=== PATIENT | female | born 1970 | race Caucasian/White ===

== ENCOUNTER 2021-03-22 09:20 | Outpatient (CLI) | payer OTHER | END 2021-03-22 09:21 | disposition home or self-care (01) | LOC: CSHMAMMO 09:20 | PROVIDERS: ATTEND Physician Assistant | DX: Z12.31 Encounter for screening mammogram for malignant neoplasm of breast (principal) | CPT/HCPCS: 77063; 77067 ==

== ENCOUNTER 2022-11-19 07:05 | Day surgery (SDC) | payer OTHER ==
[2022-11-15 11:23] VITALS: BMI 24.2
[2022-11-19] MEDS ORDERED: Lidocaine 1% PF 5 ML VIAL ONE (09:15)
[2022-11-19] MEDS ORDERED: PROPOFOL 20 ML ONE ×2 (09:15→10:09)
[2022-11-19] MEDS ORDERED: Fentanyl 100 MCG/2 ML VIAL ONE (10:02)
[2022-11-19] MEDS ORDERED: Esmolol 100 MG/10 ML VIAL ONE (10:03)
== END 2022-11-19 10:55 | disposition home or self-care (01) ==
LOC: CSHSDC 07:05
PROVIDERS: ATTEND Internal Medicine Gastroenterology
PROC: 0DJD8ZZ Inspection of Lower Intestinal Tract, Via Natural or Artificial Opening Endoscopic (ICD-10-PCS; principal; 2022-11-19)
DX: K64.8 Other hemorrhoids (principal); K57.30 Diverticulosis of large intestine without perforation or abscess without bleeding; K59.00 Constipation, unspecified; Z86.010 Personal history of colon polyps; K58.2 Mixed irritable bowel syndrome; I10 Essential (primary) hypertension; E78.5 Hyperlipidemia, unspecified
CPT/HCPCS: J2704; J3010

== ENCOUNTER 2023-12-20 10:26 | Outpatient (CLI) | payer OTHER | END 2023-12-20 10:27 | disposition home or self-care (01) | LOC: CSHMAMMO 10:26 | PROVIDERS: ATTEND Physician Assistant | DX: Z12.31 Encounter for screening mammogram for malignant neoplasm of breast (principal) | CPT/HCPCS: 77063; 77067 ==

== ENCOUNTER 2024-12-30 09:17 | Outpatient (CLI) | payer OTHER | END 2024-12-30 09:18 | disposition home or self-care (01) | LOC: CSHMAMMO 09:17 | PROVIDERS: ATTEND Physician Assistant | DX: Z12.31 Encounter for screening mammogram for malignant neoplasm of breast (principal) | CPT/HCPCS: 77063; 77067 ==

== ENCOUNTER 2025-09-27 08:30 | Outpatient (CLI) | payer OTHER | END 2025-09-27 08:31 | disposition home or self-care (01) | LOC: CSHSLEEP 08:30 | PROVIDERS: ATTEND Physician Assistant | DX: R29.818 Other symptoms and signs involving the nervous system (principal); G47.33 Obstructive sleep apnea (adult) (pediatric) | CPT/HCPCS: 95800 ==